=== PATIENT | female | born 1950 | race Caucasian/White ===

== ENCOUNTER 2017-07-21 09:56 | Observation (INO) | payer OTHER ==
[~2017-07-21] VITALS: Ht 160 cm; Wt 107.0 kg
[~2017-07-21 09:56] MED LIST: ALLERGY RELIEF PO; AMLODIPINE BESYL5 MG PO; ASPIR-LOW81 MG PO; ATORVASTATIN CA40 MG PO; B COMPLETE1 EACH PO; CALCIUM 600 +1 EAC1 PO; CALCIUM 600 MG1 EAC1 PO; CINNAMON500 MG PO; CIPRO500 MG PO; CLARITIN10 MG PO; DAILY VITAMIN1 EAC8 PO; DOCUSATE SODIU100 MG PO; FLAXSEED OIL1000 M4 PO; FLUOXETINE HCL20 MG PO; GARLIC; GLUCOPHAGE1000 MG PO; GLUCOPHAGE500 MG PO; LISINOPRIL-HCT1 EACH PO; LISINOPRIL10 MG PO; LISINOPRIL20 MG PO; LO-DOSE ASPIRIN81 M1 PO; LORATADINE10 M2 PO; MAGNESIUM250 MG PO; MECLIZINE HCL25 MG PO; METFORMIN HCL500 MG PO; PERCOCET 5/31 TABLET PO; PREDNISONE20 MG PO; PROZAC20 MG PO; ST. JOSEPH ASPI81 MG PO; SUPER B COMP1 TABLET PO; TYLENOL EXTRA500 MG PO; TYLENOL REGULA325 MG PO; VENTOLIN HFA18 GM IH; VISION FORMULA PO; VISION VITAMIN1 EACH PO; VITAMIN D-32000 UNI1 PO
[2017-07-21 10:57] LABS: BASOPHIL COUNT 0.1 K/uL (0-0.1); EOSINOPHIL (%) 0.9 % (0-5); EOSINOPHIL COUNT 0.1 K/uL (0-0.3); HEMATOCRIT 37.7 % (36.0-46.0); IMMATURE GRANULOCYTE (%) 0.4 % (0.0-0.7); IMMATURE GRANULOCYTE COUNT 0.1 K/uL; INSTRUMENT ABS NEUTROPHIL CT 9.2 K/uL; LYMPHOCYTE COUNT 1.3 K/uL (1.0-2.8); MCH 25.8 PG (29.0-34.0); MCHC 31.8 G/DL (30.0-36.0); MCV 80.9 FL (83-99); MEAN PLAT.VOLUME 11.2 uM^3 (9.5-12.4); MONOCYTE (%) 4.5 % (3-12); MONOCYTE COUNT 0.5 K/uL (0-0.8); NEUTROPHIL (%) 81.9 % (45-76); NEUTROPHIL COUNT 9.2 K/uL (1.8-6.4); PLATELET COUNT 272 K/uL (156-360); RBC DIS.WIDTH-SD 43.6 % (39-53); RED BLOOD COUNT 4.66 M/uL (3.80-5.20); WHITE BLOOD COUNT 11.2 K/uL (4.1-10.2)
[2017-07-21 11:07] LABS: CHLORIDE 107 mEq/L (99-109); SODIUM 141 mEq/L (136-147)
[2017-07-21 11:08] LABS: GLUCOSE 155 mg/dL (70-99)
[2017-07-21 11:10] LABS: ANION GAP 8 MEQ/L (2-14)
[2017-07-21 11:12] LABS: GFR ESTIMATE (CALCULATED) > 59 mL/min/
[2017-07-21 11:13] LABS: UREA NITROGEN (BUN) 13 mg/dL (9-23)
[2017-07-21] MEDS ORDERED: MICROZIDE12.5 M1 PO (13:37)
[2017-07-21] MEDS ORDERED: PRILOSEC20 MG PO (13:38)
[2017-07-21] MEDS ORDERED: ALEVE220 M2 PO (13:40)
[2017-07-21] MEDS ORDERED: CRESTOR10 MG PO (13:40)
[2017-07-21] MEDS ORDERED: CALCIUM500 M4 PO (13:41)
[2017-07-21] MEDS ORDERED: PROBIOTIC1 EAC1 PO (13:41)
[2017-07-21] MEDS ORDERED: TURMERIC 500 M1 EACH PO (13:42)
[2017-07-21] MEDS ORDERED: FISH OIL 1,2001 EAC4 PO (13:42)
[2017-07-21] MEDS ORDERED: GARLIC OIL1000 MG PO (13:42)
[2017-07-21] MEDS ORDERED: CINNAMON500 MG PO (13:42)
[2017-07-21] MEDS ORDERED: RED YEAST RICE600 MG PO (13:43)
[2017-07-21] MEDS ORDERED: HAIR, SKIN &66.7 MCG PO (13:43)
[2017-07-21] MEDS ORDERED: B-COMPLEX-VITA1 EACH PO (13:43)
[2017-07-21] MEDS ORDERED: CENTRUM ADULTS1 EACH PO (13:44)
[2017-07-21] MEDS ORDERED: CO Q-10100 MG PO (13:44)
[2017-07-21] MEDS ORDERED: PRESERVISION T1 EACH PO (13:44)
[2017-07-21 14:46] VITALS: BP 167/66; BP 185/84
[2017-07-21 14:47] VITALS: BP 166/79
[2017-07-21 18:50] VITALS: BP 122/68
[2017-07-21 23:50] VITALS: BP 137/68
[2017-07-22 04:20] VITALS: BP 141/65
[2017-07-22 07:16] VITALS: BP 174/79
[2017-07-22 08:10] LABS: POINT-OF-CARE METER ID UU13113831
[2017-07-22 11:08] VITALS: BP 142/64
[2017-07-22] MEDS ORDERED: ANTIVERT25 MG PO (11:33)
== END 2017-07-22 13:20 | disposition home or self-care (01) ==
LOC: EME 09:56 → EDOF 13:21 → 5WEST 13:21 → ENRESERV 13:23 → 5WEST 14:27 → ENPENDDIS 07-22 → 5WEST 07-22 13:20
PROVIDERS: Emergency Medicine; Internal Medicine
DX: R42 Dizziness and giddiness (principal); N39.0 Urinary tract infection, site not specified; I45.10 Unspecified right bundle-branch block; E11.9 Type 2 diabetes mellitus without complications; E66.9 Obesity, unspecified; I10 Essential (primary) hypertension; I35.0 Nonrheumatic aortic (valve) stenosis; F32.9 Major depressive disorder, single episode, unspecified; Z79.84 Long term (current) use of oral hypoglycemic drugs; Z79.82 Long term (current) use of aspirin; Z88.2 Allergy status to sulfonamides; Z82.49 Family history of ischemic heart disease and other diseases of the circulatory system; Z83.3 Family history of diabetes mellitus
CPT/HCPCS: 70450; 80048; 82948; 85025; 93005; 99281; 99285; G0378; J1650; J2405